=== PATIENT | male | born 1990 | race Caucasian/White ===

== ENCOUNTER 2020-05-10 21:20 | Emergency (ER) | payer OTHER, SELFPAY ==
--- NOTE | ~2020-05-10 | XR_ITS ---
EXAMINATION: XR chest 2V EXAM DATE: 05/11/2020 01:31 INDICATION: Nausea, lightheadedness, mid chest pain. TECHNIQUE: Frontal and lateral projections of the chest obtained and reviewed. There is no prior dick dy for comparison. FINDINGS: The lungs are clear. There are no pleural effusions. The cardiomediastinal silhouette is within normal limits. There is no pneumothorax suspected. The bones and soft tissues are unremarkab le. IMPRESSION: No acute cardiopulmonary findings. Reviewed, dictated and finalized at location A.
--- NOTE | ~2020-05-10 | CT_ITS ---
EXAMINATION: CT brain wo con EXAM DATE: 05/11/2020 01:30 INDICATION: Weakness. Sudden onset of weakness, lightheadedness, temporary visual loss. Nausea. TECHNIQUE: Spiral CT of the head was performed without contrast. Axial, coronal and sagittal images were reviewed. The dose-length product (DLP) for this examination was 605.33 mGy-cm. The exposure w as tailored according to patient size, and iterative reconstruction (ASIR) was used as additional dos e reduction technique. Comparison is made to prior examination from 06/10/2011. FINDINGS: There is no acute intraparenchymal hemorrhage. No evidence of intraparenchymal brain mass lesion. No evidence of acute infarction. There is no mass effect or midline shift. The ventricles are normal in size. There are no extra-axial collections. There are no acute calvarial fractures. T he orbits are unremarkable. Soft tissue is unremarkable. The visualized sinuses and mastoid air marika ls are well aerated. IMPRESSION: 1. Normal head CT examination. Reviewed, dictated and finalized at location A.
[2020-05-10 21:45] VITALS: BP 142/91; PULSE 91; RESP 17; TEMP 36.9; O2SAT 99
--- NOTE | 2020-05-11 00:40 | ED.GENADULT ---
HPI - General Adult General Chief complaint: Unspecified Stated complaint: dizzy, nausea, vision loss at work Time Seen by Provider: 05/11/20 00:40 Source: patient Mode of arrival: ambulatory Limitations: no limitations History of Present Illness HPI narrative: Patient is a 29-year-old male who presents for evaluation of various symptoms including episodes of what he reports as entire body ache, lightheadedness, nausea and diaphoresis that has happened 3 times, once over the past 3 weeks. Patient states the symptoms occur spontaneously without prodromal symptoms. They do not seem to be related to position or activity. He denies chest pain with these, but reports he has a wave of discomfort, over his body and then experiences diaphoresis, weakness, vision changes as if he may pass out. Patient is denying any chest pain, cough or shortness of breath. No fever or chills. Patient has a family history of heart disease. He does not reliably see a physician and was supposed to have outpatient blood work done pre-pandemic but this is all been postponed due to pandemic in the patient's work schedule. Patient denies any recent car or air travel. No history of blood clot. No abdominal pain, urinary symptoms. No weight loss or weight gain. Related Data Allergies Allergy/AdvReac Type Severity Reaction Status Date / Time No Known Allergies Allergy Verified 06/14/12 15:23 Review of Systems Review of Systems: Narrative: CONSTITUTIONAL: Denies fever, chills, reports diaphoresis with the episodes of lightheadedness EYES: Reports vision changes with the episodes of lightheadedness, none currently ENT: Denies rhinorrhea, congestion, sore throat, or otalgia. CARDIOVASCULAR: Denies chest pain, palpitations, or edema. RESPIRATORY: Denies cough or dyspnea. GASTROINTESTINAL: Denies abdominal pain, reports nausea with the lightheadedness, none currently GENITOURINARY: Denies dysuria or hematuria. SKIN: Denies rash or itching. MUSCULOSKELETAL: Denies back pain, joint pain, or myalgia. NEUROLOGIC: Denies headache, numbness, reports feeling diffusely weak with the lightheadedness, now resolved PMFSH Past Medical History Medical History (Updated 05/11/20 @ 02:58 by Doreen Lennon MD) No pertinent past medical history Surgical History Surgical History (Updated 05/11/20 @ 01:01 by Doreen Lennon MD) History of tonsillectomy Social History Social History (Updated 05/11/20 @ 01:02 by Doreen Lennon MD) Smoking status: Current some day smoker Alcohol intake: current Substance use: never Living arrangements: with family Occupation/Education: occupation Additional occupation/education comments: Maintenance Gender identity (if verbalized by the patient): Male Exam Narrative: Exam Narrative: GENERAL: Awake, alert, conversant HEAD: Normocephalic, atraumatic. EYES: PERRLA and EOMI. ENT: Nares clear, no rhinorrhea or epistaxis. Mucous membranes moist. NECK: Supple. CHEST: No respiratory distress, breathing even and non labored HEART: Regular rate, sinus rhythm ABDOMEN:Non distended, non tender EXTREMITIES: Normal range of motion. No edema. SKIN: Warm, dry, no rash. NEURO:No focal deficits. Alert and oriented x3 Course Vital Signs Vital signs: Vital Signs Temperature 36.9 C 05/10/20 21:45 Pulse Rate 91 05/10/20 21:45 Respiratory Rate 17 05/10/20 21:45 Blood Pressure 142/91 H 05/10/20 21:45 Pulse Oximetry 99 05/10/20 21:45 Temperature 36.9 C 05/10/20 21:45 Pulse Rate 69 05/11/20 02:42 Respiratory Rate 17 05/11/20 02:42 Blood Pressure 130/71 05/11/20 02:42 Pulse Oximetry 99 05/11/20 02:42 Medical Decision Making MDM Narrative Medical decision making narrative: Patient presented for evaluation lightheadedness, episodes of vision changes. At the time of assessment, ABCs are intact, vital signs are stable and neurological exam is normal patient has no focal neurological defici
[2020-05-11 00:48] VITALS: BP 132/86; PULSE 73; PULSE 79; RESP 18; O2SAT 99
--- NOTE | 2020-05-11 00:49 | ECG_ITS ---
Measurements Intervals [place] Rate: 80 P: 50 OK: 131 QRS: 35 QRSD: 95 T: 15 QT: 360 QTc: 417 Interpretive Statements SINUS RHYTHM NORMAL ECG Electronically Signed On 05-11-2020 7:28:39 CDT by Talha Haro D.O.
[2020-05-11 01:30] LABS: Basophils Absolute Auto 0.1 K/mm3 (0.0-0.1); Basophils Percent Auto 0.3 % (0.2-1.2); Eosinophils Absolute Auto 0.3 K/mm3 (0-0.3); Eosinophils Percent Auto 1.6 % (0-4.4); Hematocrit 41.6 % (42.0-52.0); Hemoglobin 14.7 g/dL (14.0-18.0); Immature Granulocyte Absolute 0.05 K/mm3 (0.00-0.031); Immature Granulocyte Percent A 0.3 % (0-0.5); Lymphocytes Absolute Auto 2.63 K/mm3 (0.9-3.2); Lymphocytes Percent Auto 16.9 % (18.3-44.2); Mean Corpuscular HGB Conc 35.3 g/dl (32-36); Mean Corpuscular Volume 90.6 fl (80-100); Mean Platelet Volume 9.9 fl (7.4-10.4); Monocytes Absolute Auto 1.2 K/mm3 (0.1-0.6); Monocytes Percent Auto 7.6 % (2.6-8.5); Neutrophils Absolute Auto 11.4 K/mm3 (1.3-6.7); Neutrophils Percent Auto 73.3 % (45.5-73.1); Platelet Count Result 275 k/mm3 (150-375); Red Blood Count 4.59 M/mm3 (4.6-6.20); Red Cell Distribution Width 11.8 % (11.5-14.5); White Blood Count 15.6 K/mm3 (4.5-10.0)
[2020-05-11 01:35] LABS: Add Urine Microscopic? YES; Appearance Urine Clear (Clear); Bilirubin Urine Negative (Negative); Blood Urine Negative (Negative); Color Urine Yellow (Yellow); Glucose Urine UA Negative (Negative); Ketones Urine Negative (Negative); Leukocyte Esterase Ur 1+ LEU/UL (Negative); Mucus Urine Rare /lpf; Nitrate Urine Negative (Negative); Protein Urine Negative (Negative); RBC Urine 0-2 /hpf (0-2); Specific Grav Ur 1.016 (1.001-1.035); Urobilinogen Urine Negative mg/dL (<2.0); WBC Urine 21-30 /hpf
[2020-05-11 01:41] LABS: Alanine Aminotransferase 20 U/L (4-50); Albumin Level 4.4 g/dL (3.5-5.1); Alkaline Phosphatase 67 U/L (38-126); Anion Gap 9 mmol/L (8-16); Aspartate Amino Transferase 18 U/L (17-59); Bilirubin,Total 0.7 mg/dL (0.2-1.3); Blood Urea Nitrogen 18 mg/dL (9-20); Calcium 9.1 mg/dL (8.4-10.2); Carbon Dioxide 25 mmol/L (22-30); Chloride 101 mmol/L (98-107); Estimated CRCL calculation 109 ml/min; Estimated Glomerular Filt Rate > 60; Glucose 112 mg/dL (75-110); INR 1.1; Potassium 3.9 mmol/L (3.4-5.0); Prothrombin Time 13.7 Seconds (11.1-14.7); Sodium 135 mmol/L (137-145)
[2020-05-11 01:42] LABS: Partial Thromboplastin Time 25.9 SECONDS (22.3-36.8)
[2020-05-11 01:45] LABS: D Dimer 0.27 ug/mL (<0.48)
[2020-05-11 01:53] LABS: Troponin I < 0.012 ng/mL (0.000-0.034)
[2020-05-11] MEDS: ACETAMINOPHEN 500 MG TABLET 1000 MG PO (02:33)
[2020-05-11 02:42] VITALS: BP 130/71; PULSE 69; RESP 17; O2SAT 99
[2020-05-11 03:25] VITALS: BP 117/60; PULSE 88; RESP 18; O2SAT 97
== END 2020-05-11 03:25 | disposition home or self-care (01) ==
PROVIDERS: Emergency Provider Emergency Medicine; PCP Internal Medicine
DX: R42 Dizziness and giddiness (principal); F17.200 Nicotine dependence, unspecified, uncomplicated
CPT/HCPCS: 36415; 70450; 71046; 80053; 81001; 84443; 84484; 85025; 85380; 85610; 85730; 87077; 87086; 87088; 87186; 87491; 87591; 93005; 99284; A9270